=== PATIENT | male | born 1950 | race Caucasian/White ===

== ENCOUNTER 2018-11-25 22:02 | Emergency (ER) | payer MEDICARE, OTHER ==
[2018-11-25] MEDS ORDERED: TETRACAINE HCL 0.5% OPH SOLN 4 ML OD ONE (22:32)
--- NOTE | 2018-11-25 22:34 | ER Document Report ---
ED Medical Screen (RME) - General Chief Complaint: Eye Problem Stated Complaint: BLEEDING IN LEFT EYE Time Seen by Provider: 11/25/18 22:29 Mode of Arrival: Ambulatory Information source: Patient Notes: 68-year-old male presents to the emergency department with reports that he sees bleeding behind his left eye. No obvious bleeding noted. Pupils equal and responsive to light. Denies trauma. Denies pain. Denies vision problems. Reports he can see the blood streaming seems to be stat settling at the bottom of his eye. Reports this never happened to him before. No past medical history of injury to this left eye. Patient reports he did hit the back of his head yesterday but no change in LOC. I have greeted and performed a rapid initial assessment of this patient. A comprehensive ED assessment and evaluation of the patient, analysis of test results and completion of the medical decision making process will be conducted by additional ED providers. Dictation of this chart was performed using voice recognition software; therefore, there may be some unintended grammatical errors. TRAVEL OUTSIDE OF THE [place] IN LAST 30 DAYS: No - Related Data Allergies/Adverse Reactions: No Known Allergies Allergy (Unverified 11/25/18 22:32) Past Medical History - Social History Frequency of alcohol use: Rare Physical Exam - Vital signs Vitals: Temp Pulse Resp BP Pulse Ox 98.0 F 68 18 147/75 H 96 11/25/18 22:16 11/25/18 22:16 11/25/18 22:16 11/25/18 22:16 11/25/18 22:16 Course - Vital Signs Vital signs: Temp Pulse Resp BP Pulse Ox 98.0 F 68 18 147/75 H 96 11/25/18 22:16 11/25/18 22:16 11/25/18 22:16 11/25/18 22:16 11/25/18 22:16
--- NOTE | 2018-11-26 04:19 | ER Document Report ---
ED Eye Complaint - General Chief Complaint: Eye Problem Stated Complaint: BLEEDING IN LEFT EYE Time Seen by Provider: 11/25/18 22:29 Mode of Arrival: Ambulatory Information source: Patient Notes: Patient complains of spiderweb and decreased visual acuity in his left eye over the last 12 to 24 hours. He denies any trauma. Denies any pain in his left eye. He wears glasses. His right eye has been fine. No sensitivity to light. No photophobia. No fevers or chills. No chest pain. No new medication. No other complaints. Vision in his right eye is normal. TRAVEL OUTSIDE OF THE [place] IN LAST 30 DAYS: No - Related Data Allergies/Adverse Reactions: No Known Allergies Allergy (Unverified 11/25/18 22:32) Past Medical History - General Information source: Patient - Social History Smoking Status: Never Smoker Frequency of alcohol use: Rare Family History: None Patient has suicidal ideation: No Patient has homicidal ideation: No - Past Medical History Cardiac Medical History: Reports: Hx Hypertension Review of Systems - Review of Systems Constitutional: denies: Chills, Fever -: Yes All other systems reviewed and negative Physical Exam - Vital signs Vitals: Temp Pulse Resp BP Pulse Ox 98.0 F 68 18 147/75 H 96 11/25/18 22:16 11/25/18 22:16 11/25/18 22:16 11/25/18 22:16 11/25/18 22:16 - General General appearance: Appears well, Alert - HEENT Head: Normocephalic, Atraumatic Eyes: Normal Conjunctiva: Normal Cornea: No: Corneal abrasion, Corneal ulcer, Embedded foreign body, Opacified Extraocular movements intact: Yes Eyelashes: Normal Pupils: PERRL Visual acuity- Right eye: 20/45 Visual acuity- Left eye: 20/45 Visual acuity- Both eyes: 20/20 Corrective lenses worn: Yes Right intraocular pressure: 20 Left intraocular pressure: 20 Lids everted for exam: bilateral: Normal Fundascopic: Retinal detachment - Left Visual bowers normal: No - Left medial deficit Ears: Normal External canal: Normal Sinus: Normal Nasal: Normal Mouth/Lips: Normal Mucous membranes: Normal Pharynx: Normal Neck: Supple - Respiratory Respiratory status: No respiratory distress Chest status: Nontender Breath sounds: Normal Chest palpation: Normal - Cardiovascular Rhythm: Regular Heart sounds: Normal auscultation Murmur: No - Abdominal Inspection: Normal Distension: No distension Bowel sounds: Normal Tenderness: Nontender Organomegaly: No organomegaly - Back Back: Normal, Nontender - Extremities General upper extremity: Normal inspection, Nontender, Normal color, Normal ROM, Normal temperature General lower extremity: Normal inspection, Nontender, Normal color, Normal ROM, Normal temperature, Normal weight bearing. No: Jose's sign - Neurological Neuro grossly intact: Yes Cognition: Normal Orientation: AAOx4 [place] Scale Eye Opening: Spontaneous [place] Scale Verbal: Oriented [place] Scale Motor: Obeys Commands [place] Scale Total: 15 Speech: Normal Motor strength normal: LUE, RUE, LLE, RLE Sensory: Normal - Psychological Associated symptoms: Normal affect, Normal mood - Skin Skin Temperature: Warm Skin Moisture: Dry Skin Color: Normal Course - Re-evaluation Re-evalutation: 11/26/18 04:19 Ophthalmology not available [employer] [facility]. I am arranging for transfer to the closest facility with an eye doctor which is [place]. Patient does not have his own eye doctor currently. 11/26/18 04:41 DISCUSSED CASE IN DETAIL WITH LIBRARY CIRCULATION ASSISTANT DR. SUSY BENITO AT [facility] AT [phone], WHO WILL SEE PT AT HER OFFICE THIS MORNING AT 10 AM AT [email or web address] [employer] AT THE AFTER HOURS ENTRANCE. 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 SUSY BENITO AT [facility] AT PHONE NUMBER [phone], WHO WILL SEE YOU AT HER OFFICE THIS MORNING AT 10 AM AT [address] AT THE AFTER HOURS ENTRANCE. RETURN AT ONCE IF WORSE OR NEW SYMPTOMS.
[2018-11-26 04:55] VITALS: BP 129/75
== END 2018-11-26 04:55 | disposition home or self-care (01) ==
LOC: ER 22:02
DX: H44 Disorders of globe (principal); I10 Essential (primary) hypertension